=== PATIENT | female | born 1985 | race Caucasian/White ===

== ENCOUNTER 2023-06-04 09:22 | Emergency (ER) | payer OTHER ==
[2023-06-04] VITALS (9 sets, daily range): BP systolic 103–115; BP diastolic 59–73
[~2023-06-04] VITALS: Ht 162.6 cm; Wt 52.1 kg
[2023-06-04 09:55] LABS: URINE BLOOD DIPSTICK SMALL (NEGATIVE); URINE COLOR YELLOW; URINE GLUCOSE - DIPSTICK NEGATIVE (NEGATIVE); URINE KETONE 15 mg/dL (NEGATIVE); URINE LEUK ESTERASE NEGATIVE (NEGATIVE); URINE PROTEIN - DIPSTICK NEGATIVE (NEG-TRACE); URINE SPECIFIC GRAVITY 1.025; URINE UROBILINOGEN - DIPSTICK 0.2 E.U./dL (0.2)
[2023-06-04 09:57] LABS: BASO% 0.2 % (0-3); EOS% 0.6 % (0-8); HEMATOCRIT 38.4 % (37.0-47.0); HEMOGLOBIN 12.2 g/dl (12.0-16.0); IMMATURE GRANULOCYTES 0.1 % (0.0-5.0); LYMPH% 13.3 % (15-41); MEAN CELL VOLUME 88.9 fL CALC (80.0-100.0); MEAN CORPUSCULAR HGB 28.2 pG CALC (26.0-32.0); MEAN CORPUSCULAR HGB CONC 31.8 g/dL CAL (32.0-36.0); MONO% 6.8 % (2-13); NEUT# 6.84 thou/uL (2.00-7.15); RED BLOOD COUNT 4.32 mill/uL (4.20-5.60); RED CELL DISTRI WIDTH 13.1 % (11.5-15.5)
[2023-06-04 09:59] LABS: URINE BILIRUBIN - DIPSTICK SEE COMMNET (NEGATIVE); URINE NITRITE - DIPSTICK NEGATIVE (Negative)
[2023-06-04 10:04] LABS: URINE SQUAMOUS EPITHELIAL CELL FEW EPI/hpf (0-FEW)
[2023-06-04 10:06] LABS: URINE MUCUS FEW hpf (NONE-FEW); URINE WBC 0-2 WBC/hpf (0-5)
[2023-06-04 10:20] LABS: ALBUMIN 4.3 g/dL (3.2-5.0); ALKALINE PHOSPHATASE 68 u/l (38-126); ANION GAP 12 (6-22 (CALC)); BILIRUBIN, TOTAL 0.8 mg/dL (0.02-1.3); BUN 14 mg/dL (7-17); BUN/CREATININE RATIO 20 (12-20 (CALC)); CARBON DIOXIDE 24 mmol/l (22-30); CHLORIDE 105 mmol/l (95-108); CREATININE 0.7 mg/dL (0.5-1.0); GFR FOR AFR.AMER. > 60 ML/MIN (>=60 (CALC)); GFR OTHER RACES > 60 ML/MIN (>=60 (CALC)); POTASSIUM 3.9 mmol/l (3.5-5.1); SGOT/AST 23 u/l (14-36); SODIUM 138 mmol/l (137-146); TOTAL PROTEIN 7.2 g/dL (6.3-8.2)
== END 2023-06-04 13:48 | disposition home or self-care (01) ==
LOC: ED 09:22
PROVIDERS: Family Medicine
DX: R10.32 Left lower quadrant pain (principal); R31.9 Hematuria, unspecified
CPT/HCPCS: Q9967